=== PATIENT | female | born 1985 | race Caucasian/White ===

== ENCOUNTER → 2018-05-02 15:10 | Outpatient (CLI) | payer MEDICAID ==
--- NOTE | ~2018-05-02 | ST ---
PATIENT:BRANDT BENAVIDES MEDICAL RECORD: [id number] SEX: F LOCATION:[facility] ORDER #: ADMISSION DATE: 05/02/18 AGE OF PATIENT: 33 REFERRING PHYSICIAN: INTERPRETING PHYSICIAN: CORONA CHUNG MD DATE OF SERVICE: 05/02/2018 TREADMILL STRESS TEST Baseline ECG is normal. Exercised for 6 minutes 45 seconds, achieving maximal heart rate of 138 beats per minute, less than 85% of max predicted. No ECG change of ischemia. No symptoms of ischemia. Normal blood pressure response to exercise. No arrhythmias noted. Test terminated early due to orthopedic issues. TRANSINT:[id number] Voice Confirmation ID: [id number] DOCUMENT ID: [id number] CORONA CHUNG MD at 1407 CC: [id number] DICTATION DATE: 05/05/18 1320 REFRIGERATOR REPAIRMAN: 05/05/18 1735 DEP CLI 05/02/[address] [id number]
== END | disposition home or self-care (01) ==
LOC: D.HCCARDIO 15:10
DX: R07.9 Chest pain, unspecified (principal)